=== PATIENT | female | born 1985 | race Caucasian/White ===

== ENCOUNTER 2017-07-22 20:03 | Emergency (ER) | payer OTHER ==
[~2017-07-22] VITALS: Ht 162.6 cm; Wt 72.6 kg
[2017-07-22 20:10] VITALS: Ht 162.6 cm; Wt 72.6 kg
[2017-07-22 23:06] VITALS: BP 118/59
== END 2017-07-22 23:06 | disposition home or self-care (01) ==
LOC: ED 20:03
DX: S06.0X0A Concussion without loss of consciousness, initial encounter (principal); S05.10XA Contusion of eyeball and orbital tissues, unspecified eye, initial encounter; S20.219A Contusion of unspecified front wall of thorax, initial encounter; E03.9 Hypothyroidism, unspecified; Y04.8XXA Assault by other bodily force, initial encounter; Y93.89 Activity, other specified; Y92.89 Other specified places as the place of occurrence of the external cause; Y99.8 Other external cause status
CPT/HCPCS: J1885; J2405; J2765; J7030

== ENCOUNTER 2018-12-06 17:10 | Emergency (ER) | payer OTHER ==
[~2018-12-06] VITALS: Ht 157.5 cm; Wt 83.0 kg
[2018-12-06 17:41] VITALS: Ht 157.5 cm; Wt 83.0 kg
[2018-12-06 19:53] VITALS: BP 148/73
== END 2018-12-06 19:53 | disposition home or self-care (01) ==
LOC: ED 17:10
DX: J20.9 Acute bronchitis, unspecified (principal); J02.9 Acute pharyngitis, unspecified

== ENCOUNTER 2019-04-24 17:00 | Emergency (ER) | payer MEDICAID ==
[~2019-04-24] VITALS: Ht 157.5 cm; Wt 78.5 kg
[2019-04-24 17:07] VITALS: Ht 157.5 cm; Wt 78.5 kg
[2019-04-24 17:41] VITALS: BP 122/75
== END 2019-04-24 17:41 | disposition home or self-care (01) ==
LOC: ED 17:00
DX: J06.9 Acute upper respiratory infection, unspecified (principal); J32.9 Chronic sinusitis, unspecified
CPT/HCPCS: 87804